=== PATIENT | female | born 1970 | race African-American/Black ===

== ENCOUNTER 2020-05-06 09:40 | Outpatient (CLI) | payer BC ==
--- NOTE | 2020-05-06 10:57 | BD ---
BONE DENSITOMETRY USING DEXA: HISTORY: Postmenopausal screening for osteoporosis. FINDINGS: Lumbar Spine: BMD (g/cm2) L1 1.170 T-Score: 1.6 Z-Score: 2.3 L2 1.045 T-Score: 0.2 Z-Score: 0.9 L3 1.005 T-Score: 0.7 Z-Score: 0.1 L4 1.238 T-Score: 1.6 Z-Score: 2.5 L1-L4 1.119 T-Score: 1.7 Z-Score: 1.5 Femoral Neck: 0.832 T-Score: -0.1 Z-Score: 0.7 Total Femur: 0.994 T-Score: 0.4 Z-Score: 0.9 Impression: Normal bone mineral density. POS: [facility]
== END 2020-05-06 09:41 | disposition home or self-care (01) ==
LOC: BICMAMMO 09:40
PROVIDERS: ATTEND Internal Medicine Rheumatology
DX: Z13.820 Encounter for screening for osteoporosis (principal); Z78.0 Asymptomatic menopausal state
CPT/HCPCS: 77080

== ENCOUNTER 2020-06-17 05:52 | Outpatient (CLI) | payer BC, OTHER ==
[2020-06-18 13:52] LABS: SARS-CoV-2 MS2 Positive; SARS-CoV-2 N Gene Negative; SARS-CoV-2 S Gene Negative; SARS-CoV-2 by NAA Not Detected (NotDetected); SARS-CoV-2 orf1ab Negative
== END 2020-06-17 05:53 | disposition home or self-care (01) ==
LOC: LABBT 05:52
PROVIDERS: ATTEND Internal Medicine Gastroenterology
DX: Z01.812 Encounter for preprocedural laboratory examination (principal); Z11.59 Encounter for screening for other viral diseases; Z12.11 Encounter for screening for malignant neoplasm of colon
CPT/HCPCS: 87635; U0003

== ENCOUNTER 2020-06-22 06:08 | Day surgery (SDC) | payer BC ==
[2020-06-15 12:09] VITALS: BMI 46.7
[2020-06-22] MEDS ORDERED: PROPOFOL 200 MG/20 ML VIAL ONE (09:51)
--- NOTE | 2020-06-22 12:03 | OP ---
DATE OF PROCEDURE: 06/22/2020 PROCEDURE PERFORMED: Screening colonoscopy. POSTPROCEDURE DIAGNOSIS: Normal screening colonoscopy. RECOMMENDATIONS: Repeat colonoscopy in 10 years. ANESTHESIA: TIVA. PROCEDURE IN DETAIL: After the patient was informed of the risks, benefits, and possible complications of endoscopy including perforation, bleeding, reaction to medication, aspiration, informed consent was obtained. The patient was brought to the endoscopy suite, where she was sedated in gradual fashion. Once she was comfortable, rectal examination was performed, which was normal. The endoscope was advanced to the anal canal through the colon to the cecum, which was identified by the ileocecal valve and appendiceal orifice. The prep was very good. There was good visualization of the mucosa with good prep. There were no mass lesions or AV malformations. No polyps were seen. Retroflexed views in the rectum were normal. Scope was removed. The patient tolerated the procedure well. There were no complications. Job ID: [id number]
== END 2020-06-22 12:00 | disposition home or self-care (01) ==
LOC: SDC 06:08
PROVIDERS: ATTEND Internal Medicine Gastroenterology
PROC: 0DJD8ZZ Inspection of Lower Intestinal Tract, Via Natural or Artificial Opening Endoscopic (ICD-10-PCS; principal; 2020-06-22)
DX: Z12.11 Encounter for screening for malignant neoplasm of colon (principal); E78.5 Hyperlipidemia, unspecified; I10 Essential (primary) hypertension; M32.9 Systemic lupus erythematosus, unspecified; Z79.82 Long term (current) use of aspirin; Z79.899 Other long term (current) drug therapy
CPT/HCPCS: J2704

== ENCOUNTER 2022-05-31 08:53 | Outpatient (CLI) | payer BC | END 2022-05-31 08:54 | disposition home or self-care (01) | LOC: BICMAMMO 08:53 | PROVIDERS: ATTEND Internal Medicine | DX: Z12.31 Encounter for screening mammogram for malignant neoplasm of breast (principal); R92.1 Mammographic calcification found on diagnostic imaging of breast | CPT/HCPCS: 77063; 77067 ==

== ENCOUNTER 2024-09-11 15:09 | Emergency (ER) | payer BC, OTHER | END 2024-09-11 17:06 | disposition home or self-care (01) | LOC: ERS 15:09 | DX: S39.012A Strain of muscle, fascia and tendon of lower back, initial encounter (principal); S16.1XXA Strain of muscle, fascia and tendon at neck level, initial encounter; I10 Essential (primary) hypertension; Z55.6 Problems related to health literacy | CPT/HCPCS: 72100; 99284 ==